=== PATIENT | female | born 1975 | race Caucasian/White ===

== ENCOUNTER 2022-04-06 16:55 | Emergency (ER) | payer OTHER ==
--- OUTSIDE RECORDS SUMMARY | 2022-04-06 16:58 | XMS REPORT | Continuity of Care Document ---
:1975 Author Organization [facility] t Address [address] [place] [address] Care Team Providers Name Role Phone PREZAS Primary Care Physician Unavailable RADIOLOGY Attending Clinician Unavailable Jana JIMENEZ Attending Clinician Unavailable Jana Galvan Attending Clinician CHIDI_Levi Attending Clinician Unavailable Chidi Attending Clinician [phone] CHIDI_S Admitting Clinician Unavailable Payers Payer Name Policy Type Policy Number Effective Date Expiration Date [facility] [id number] 2022 [place] 00[place]00[place] [id number] 2020 [place] 00:[place]00 [place] [facility] [id number] 2018 00:00:00 BCBS [facility] [id number] 2019 00:00:00 Problems Condition Condition Condition Status Onset Resolution Last Treating Co mments Source Name Details Category Date Date Treatment Clinician Date Obesity Obesity Disease Active Univers (BMI (BMI 6-10 ity of 30-39.9) 30-39.9) 00:00: [place] 00 Medical Branch Allergies, Adverse Reactions, Alerts Allergy Allergy Status Severity Reaction(s) Onset Inactive Treating Comm ents Source Name Type Date Date Clinician SULFA Drug Active Rash Univers (SULFONA Class 8-02 ity of MIDE 00:00: [place] ANTIBIOT 00 Medical ICS) Branch VANCOMYC DRUG Active Hives Univers IN INGREDI 06-01 ity of 00:00: [place] 00 Medical Branch Sulfa Propensi Active Rash 2015- Univers (Sulfona ty to 06-01 ity of mide adverse 00:00: [place] Antibiot reaction 00 Medica l ics) s Branch Vancomyc Propensi Active Hives Univer s in ty to 06-01 ity of adverse 00:00: [place] reaction 00 Medical s Branch Social History Social Habit Start Date Stop Date Quantity Comments Source Exposure to Not sure [facility] SARS-CoV-2 (event) Medica l Branch Tobacco use and 2018-06-15 2018-06-15 Never used [facility] exposure 00:00:00 00:00:00 Medical Branch Sex [birth year] [facility] 00:00:00 00:00:00 Medical Branch Smoking Status Start Date Stop Date Source Never smoker [facility] Medications Ordered Filled Start Stop Current Ordering Indication Dosage Frequency Signature Comments Components Source Medication Medication Date Date Medication? Clinician (SIG) Name Name bromphenira 2021- Yes [id number] 5mL Take 5 mL Univers mine-pseudo 4-15 04-21 by mouth 4 i ty of ephedrine-D 00:00: 04:59 (four) Lui as M 2-30-10 00 :00 times Medical mg/5 mL daily as Branch syrup needed for Congestion /Allergies for up to 5 days. codeine-gua 2020-10 Yes 5mL Take 5 mL U nivers ifenesin 2-15 by mouth. ity of 10-100 mg/5 00:00: [place] mL oral 00 Medical solution Branch albuterol 2020-10- No 2{puff} Inhale 2 Univers 90 2-15 12-16 Puffs. ity of mcg/actuati 00:00: 05:59 [place] on inhaler 00 :00 Medical Branch buPROPion 2020-10- No 150mg Take 150 Un georges XL 150 mg 1-04 11-05 mg by ity of 24 hr 00:00: 04:59 mouth. [place] tablet 00 :00 Medical Branch SERTraline 2020-10- No 100mg Take 100 U nivers 100 mg -04 11-05 mg by ity of tablet 00:00: 04:59 mouth. [place] 00 :00 [facility] phentermine 1-0 Yes 15mg Take 15 mg Univers 15 mg 4-19 by mouth. ity of capsule 00:00: [place] 00 [facility] FLUoxetine 2018-0 Yes 20mg Take 20 mg U nivers (PROZAC) 20 8-16 by mouth ity of mg capsule 21:42: daily. [address] Immunizations Ordered Filled Immunization Date Status Comments Maynor hansen Immunization Name Name SARS-COV-2 COVID-19 2021-02-07 Completed Unive rsity of PFIZER VACCINE 00:00:00 [facility] SARS-COV-2 COVID-19 2021-01-17 Completed Unive rsity of PFIZER VACCINE 00:00:00 [facility] Vital Signs Vital Name Observation Time Observation Value Comments Source Systolic blood 2022-02-12 19:55:00 120 mm[Hg] Univer sity of pressure [facility] Diastolic blood 2022-02-12 19:55:00 79 mm[Hg] Unive rsity of pressure [facility] Heart rate 2022-02-12 19:55:00 81 /min [facility] Body temperature 2022-02-12 19:55:00 36.72 Kelsi [facility] Respiratory rate 2022-02-12 19:55:00 14 /min [facility] Body height 2022-02-12 19:55:00 170.2 cm [facility] Body weight 2022-02-12 19:55:00 98.975 kg [facility] BMI 2022-02-12 19:55:00 34.17 kg/m2 [facility] Oxygen saturation in 2022-02-12 19:55:00 96 /min [facility] Arterial blood by [facility] Pulse oximetry Tok Procedures Procedure Date / Time Performed Performing Clinician Maynor hansen POCT MOLECULAR FLU 2022-02-12 19:58:00 Maria Fernanda Jimenez [facility] Encounters Start End Encounter Admission Attending Care Care Encounter Source Date/Time Date/Time Type Type Clinicians Facility Department ID 2022-04-09 2022-04-09 Outpatient R RADIOLOGY [facility] [id number] [facility] 00:00:00 00:00:00 [id number] [facility] 2022-02-12 2022-02-12 [facility] [id number] Univers 15:00:00 15:23:23 MARIA FERNANDA pablo o f [facility] 2022-02-12 2022-02-12 [facility] [id number] Univers 15:00:00 15:23:23 Care Maria Fernanda [facility] [id number] [facility] [id number] Lui as SUMMER?BLEA [id number] Me [address] MEDICAL OFFICE BUILDING 2022-02-12 2022-02-12 Outpatient R [facility] [id number] Univers 15:00:00 15:00:00 [id number] [facility] 2021-08-01 2021-08-01 Outpatient [facility] [id number] [place] 07:22:00 07:22:00 [facility] 2021-06-27 2021-06-27 Outpatient [facility] [id number] [place] 02:28:00 02:28:00 0828 [facility] 2021-05-23 2021-05-23 Outpatient [facility] [id number] [place] 02:31:00 02:31:00 0724 [facility] 2021-04-27 2021-04-27 Outpatient [facility] [id number] [place] 03:41:00 03:41:00 0628 [facility] 2021-04-27 2021-04-27 Outpatient Hernandez, [facility] [id number] 00:00:00 00:00:00 Jyoti [id number] 2021-02-07 2021-02-07 Outpatient [facility] [id number] Univers 16:35:00 16:35:00 ity [facility] 2021-01-17 2021-01-17 Outpatient [facility] [id number] Univers 16:40:00 16:40:00 ity [facility] 2007-03-23 2007-03-23 Outpatient [facility] [id number] Univers 00:00:00 00:00:00 [id number] ity [facility] 2006-12-26 2006-12-26 Outpatient [facility] [id number] Univers 00:00:00 08:51:37 4 ity [facility] 2006-12-22 2006-12-22 Outpatient [facility] [id number] Univers 00:00:00 00:00:00 [id number] ity [facility] 2006-12-13 2006-12-13 Outpatient [facility] [id number] Univers 00:00:00 00:00:00 [id number] ity [facility] 2006-09-20 2006-09-20 Outpatient [facility] [id number] Univers 00:00:00 14:26:48 6 ity [facility] 2006-06-27 2006-06-27 Outpatient [facility] [id number] Univers 00:00:00 14:12:51 7 ity [facility] 2006-04-27 2006-04-27 Outpatient [facility] [id number] Univers 00:00:00 00:00:00 [id number] ity [facility] 2006-04-04 2006-04-04 Outpatient [facility] [id number] Univers 00:00:00 [facility]47[facility] 2006-01-10 Outpatient [facility] [id number] Univers 00:00:00 13:48:19 3 [facility] Results Test Description Test Time Test Comments Results Result Comments Source POCT MOLECULAR FLU 2022-02-12 20:09:57 Test Item Value Reference Range Interpretation Comme nts POCT Molecular FluA (test code = 10281-0) Negative Negative POCT Molecular FluB (test code = 05978-6) Negative Negative Lab Interpretation (test code = 14792-4) Normal [facility]
[2022-04-06] MEDS ORDERED: ONDANSETRON 4 MG/2 ML VIAL ONE ×3 (18:01→19:53)
[2022-04-06] MEDS ORDERED: NA CHLORIDE 0.9% 1,000 ML ONE ×2 (18:01→19:53)
[2022-04-06] MEDS ORDERED: MORPHINE 4 MG/ML SYR ONE (18:01)
[2022-04-06] MEDS ORDERED: FENTANYL CITR 100 MCG/2 ML ONE (18:06)
[2022-04-06 18:08] LABS: Absolute Lymphocytes (CBC) 2.3 K/uL (0.7-4.9); Hematocrit 46.4 % (36.0-45.0); Lymphocytes % 31.1 % (15.3-44.8); MPV 7.9 fL (7.6-11.3); RBC Red Blood Cell Count 5.14 M/uL (3.86-4.86)
--- NOTE | 2022-04-06 18:30 | RAD REPORT ---
EXAM DESCRIPTION: US - Abdomen Exam Limited - 04/06/2022 6:21 pm CLINICAL HISTORY: epigastric/RUQ pain COMPARISON: ABDOMINAL EXAM LIMITED dated 04/18/2015 FINDINGS: The gallbladder demonstrates no gallstones. No pericholecystic fluid or gallbladder wall t hickening. The common bile duct is normal measuring 3 mm. The liver demonstrates no findings of intrahepatic biliary dilatation. IMPRESSION: Unremarkable examination.
[2022-04-06 19:14] LABS: Albumin 2.6 g/dL (3.4-5.0); Bilirubin Total 0.3 mg/dL (0.2-1.0); Potassium 3.6 mmol/L (3.5-5.1); Protein, Total 6.5 g/dL (6.4-8.2)
[2022-04-06 20:00] LABS: Urine Blood Negative (Negative); Urine Glucose Negative (Negative); Urine Protein Negative (Negative); Urine Specific Gravity 1.025 (1.005-1.030); Urine pH 5.5 (5.0-7.0)
--- NOTE | 2022-04-06 20:19 | RAD REPORT ---
EXAM DESCRIPTION: CTAbdomen Pelvis W Contrast - 04/06/2022 8:01 pm CLINICAL HISTORY: Abdominal pain. Epigastric pain COMPARISON: Abdomen Pelvis W Contrast dated 04/16/2017 TECHNIQUE: Biphasic CT imaging of the abdomen and pelvis was performed with 100 ml non-ionic IV cont rast. All CT scans are performed using dose optimization technique as appropriate and may include automated exposure control or mA/KV adjustment according to patient size. FINDINGS: The lung bases are clear. The liver, spleen, pancreas, adrenal glands and kidneys are within normal limits. No bowel obstruction, free air, free fluid or abscess. Mild sigmoid diverticulosis. The appendix is n ormal. No evidence of significant lymphadenopathy. Mild lower lumbar degenerative changes. 4 cm right ovarian cyst. IMPRESSION: No acute intra-abdominal or pelvic finding.
[2022-04-06 20:59] LABS: Urine Bacteria <20 /HPF (<20); Urine RBC <5 /HPF (NONE SEEN)
--- NOTE | 2022-04-06 21:08 | ER ---
Nurse's Notes [facility] Name: Nadia Blackwell Age: 46 yrs Sex: Female : 1975 Arrival Date: 04/06/2022 Time: 16:57 Bed 16 Private MD: Diagnosis: Nausea with vomiting, unspecified;Diarrhea, unspecified;Hyperglycemia, unspecified Presentation: 04/06 17:01 Chief complaint: Patient states: I have felt sick since Tuesday afternoon. I have had jb4 diarrhea since Tuesday and nausea. Today I started dry heaving. I have had this burning stomach pain that now radiates to the right. Coronavirus screen: At this time, the client does not indicate any symptoms associated with coronavirus-19. Ebola Screen: No symptoms or risks identified at this time. Initial Sepsis Screen: Does the patient meet any 2 criteria? No. Patient's initial sepsis screen is negative. Does the patient have a suspected source of infection? Yes: Acute abdominal pain. Risk Assessment: Do you want to hurt yourself or someone else? Patient reports no desire to harm self or others. Onset of symptoms was April 03, 2022. Transition of care: patient was not received from another setting of care. 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 - Social history:: Smoking status: Patient denies any tobacco usage or history of. Screenin:35 Abuse screen: Denies threats or abuse. jh6 17:35 Nutritional screening: No deficits noted. Tuberculosis screening: No symptoms or risk jh6 factors identified. Fall Risk Assessment: 17:35 General: Appears in no apparent distress. uncomfortable, Behavior is calm, cooperative. jh6 Pain: Complains of pain in abdomen Pain currently is 6 out of 10 on a pain scale. Quality of pain is described as burning, crampy, Pain began 2-3 days ago. Is intermittent, Aggravated by increased activity, repositioning, Noted to be guarding. 17:35 GI: Bowel sounds present X 4 quads. Abd is soft X 4 quads Abdomen is tender to jh6 palpation in right upper quadrant and left upper quadrant Guarding noted in umbilical area, right upper quadrant and left upper quadrant Reports upper abdominal pain, nausea, vomiting. 19:45 Reassessment:. General: Appears in no apparent distress. Behavior is appropriate for lp1 age. Pain: Complains of pain in epigastric area Pain currently is 5 out of 10 on a pain scale. Neuro: Level of Consciousness is awake, alert, obeys commands. Cardiovascular: Patient's skin is warm and dry. Respiratory: Respiratory effort is even, unlabored. GI: Abdomen is round Abdomen is tender to palpation in epigastric area Reports nausea. : No signs and/or symptoms were reported regarding the genitourinary system. Derm: Skin is pink, warm \T\ dry. Musculoskeletal: No deficits noted. 19:50 Reassessment: Patient to CT via wheelchair. lp1 20:06 Reassessment: Patient returned from CT. lp1 21:19 Reassessment: Patient appears in no apparent distress at this time. Patient is alert, lp1 oriented x 3, equal unlabored respirations, skin warm/dry/pink. Patient states feeling better. Patient states symptoms have improved. 21:40 Reassessment: Patient is alert, oriented x 3, equal unlabored respirations, skin bb warm/dry/pink. pt verbalized understanding of and agrees to plan of care discharge instructions given pt ambulated with steady gait to exit. Vital Signs: 17:01 BP 118 / 90; Pulse 86; Resp 16; Temp 97.7(TE); Pulse Ox 100% on R/A; Weight 97.98 kg; jb4 Height 5 ft. 8 in. (172.72 cm) (R); Pain 10/10; 20:14 BP 128 / 79; Pulse 79; Resp 18; Pulse Ox 100% on R/A; lp1 21:41 BP 114 / 73; Pulse 73; Resp 16 S; Pulse Ox 98% on R/A; bb 17:01 Body Mass Index 32.84 (97.98 kg, 172.72 cm) jb4 ED Course: 16:57 Patient arrived in ED. rg4 17:03 Triage completed. jb4 17:03 Arm band placed on right wrist. jb4 17:05 Edmar Forrest PA is PHCP. cp 17:05 Jimmy Yoder MD is Attending Physician. cp 17:35 Bed in low position. Call light in reach. Side rails up X 1. Adult w/ patient. jh6 17:40 Daina Mejia, RN is Primary Nurse. jh6 17:59 Inserted saline lock: 20 gauge in left forearm, using aseptic technique. Blood ww collected. 18:23 US Abdomen Limited In Process Unspecified. EDMS 18:45 No provider procedures requiring assistance completed. jh6 20:03 CT Abd/Pelvis - IV Contrast Only In Process Unspecified. EDMS 21:41 IV discontinued, intact, bleeding controlled, No redness/swelling at site. Pressure bb dressing applied. Administered Medications: 17:58 Drug: NS 0.9% 1000 ml Route: IV; Rate: 1 bolus; Site: left antecubital; jh6 21:42 Follow up: IV Status: Completed infusion; IV Intake: 1000ml bb 17:58 Drug: Zofran (Ondansetron) 4 mg Route: IVP; Site: left antecubital; jh6 18:00 Drug: fentaNYL (PF) 25 mcg Route: IVP; Site: left antecubital; jh6 18:41 Not Given (Patient Refused): morphine 4 mg IVP once over 4 mins jh6 19:50 Drug: Zofran (Ondansetron) 4 mg Route: IVP; Site: left forearm; lp1 21:18 Follow up: Response: No adverse reaction; Marked relief of symptoms lp1 20:14 Drug: NS 0.9% 1000 ml Route: IV; Rate: 1 bolus; Site: left forearm; lp1 21:19 Follow up: IV Status: Completed infusion; IV Intake: 1000ml lp1 21:43 Not Given (Hemodynamic Parameters): Insulin Regular Human 5 units IVP once bb Medication: 20:08 VIS not applicable for this client. lp1 Intake: 21:19 IV: 1000ml; Total: 1000ml. lp1 21:42 IV: 1000ml; Total: 2000ml. bb Outcome: 21:07 Discharge ordered by . cp 21:42 Discharged to home ambulatory. bb 21:42 Condition: stable 21:42 Discharge instructions given to patient, Instructed on discharge instructions, follow up and referral plans. Demonstrated understanding of instructions, follow-up care. 21:43 Patient left the ED. bb Signatures: Dispatcher [employer] Maris Mederos RN RN bb Arabella Anderson RN RN lp1 Edmar Forrest PA PA cp Garcia, Rubi rg4 Tru Bryant RN RN jb4 Daina Mejia RN RN jh6 Mary Gramajo RN RN ww Corrections: (The following items were deleted from the chart) 18:41 17:58 morphine 4 mg IVP in left antecubital over 4 mins [facility]
--- NOTE | 2022-04-06 21:08 | EDPHYS ---
Physician Documentation [facility] Name: Nadia Blackwell Age: 46 yrs Sex: Female : 1975 Arrival Date: 04/06/2022 Time: 16:57 Bed 16 Private MD: ED Physician Jimmy Yoder HPI: 04/06 17:50 This 46 yrs old Female presents to ER via Ambulatory with complaints of Abdominal Pain, cp Nausea. 17:50 The patient presents with abdominal pain in the epigastric area. Onset: The cp symptoms/episode began/occurred 3 day(s) ago. The symptoms radiate to back. Associated signs and symptoms: Pertinent positives: nausea and vomiting, anorexia, diarrhea, Pertinent negatives: chest pain, constipation, fever, vomiting blood. 17:50 The symptoms are described as waxing/waning. cp 17:50 Modifying factors: the symptoms are aggravated by food. 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 - Social history:: Smoking status: Patient denies any tobacco usage or history of. ROS: 17:55 Constitutional: Positive for poor PO intake, Negative for body aches, chills, fever. cp 17:55 Eyes: Negative for injury, pain, redness, and discharge. cp 17:55 ENT: Negative for drainage from ear(s), ear pain, sore throat, difficulty swallowing, difficulty handling secretions. 17:55 Cardiovascular: Negative for chest pain, edema, palpitations. 17:55 Respiratory: Negative for cough, shortness of breath, wheezing. 17:55 Abdomen/GI: Positive for abdominal pain, nausea, vomiting, and diarrhea, of the epigastric area, Negative for hematemesis, black/tarry stool, rectal bleeding. 17:55 Back: Positive for radiated pain, Negative for injury or acute deformity, decreased range of motion. 17:55 Skin: Negative for cellulitis, rash. 17:55 Neuro: Negative for altered mental status, headache, weakness. 17:55 All other systems are negative. Exam: 18:00 Constitutional: The patient appears in no acute distress, alert, awake, cp non-diaphoretic, non-toxic, well developed, well nourished, uncomfortable. 18:00 Head/Face: Normocephalic, atraumatic. cp 18:00 Eyes: Periorbital structures: appear normal, Conjunctiva: normal, no exudate, no injection, Sclera: no appreciated abnormality, Lids and lashes: appear normal, bilaterally. 18:00 ENT: External ear(s): are unremarkable, Nose: is normal, Mouth: Lips: moist, Oral mucosa: pink and intact, moist, Posterior pharynx: Airway: no evidence of obstruction, patent. 18:00 Chest/axilla: Inspection: normal. 18:00 Cardiovascular: Rate: normal, Rhythm: regular. 18:00 Respiratory: the patient does not display signs of respiratory distress, Respirations: normal, no use of accessory muscles, no retractions, labored breathing, is not present, Breath sounds: are clear throughout, no decreased breath sounds, no stridor, no wheezing. 18:00 Abdomen/GI: Inspection: abdomen appears normal, Bowel sounds: active, all quadrants, Palpation: soft, in all quadrants, severe abdominal tenderness, in the epigastric area and right upper quadrant, rebound tenderness, is not appreciated, voluntary guarding, is elicited in the epigastric area and right upper quadrant. 18:00 Back: pain, that is moderate, of the mid back area, ROM is normal. 18:00 Neuro: Orientation: to person, place \T\ time. Mentation: is normal, Motor: moves all fours, strength is normal, Sensation: is normal. Vital Signs: 17:01 BP 118 / 90; Pulse 86; Resp 16; Temp 97.7(TE); Pulse Ox 100% on R/A; Weight 97.98 kg; jb4 Height 5 ft. 8 in. (172.72 cm) (R); Pain 10/10; 20:14 BP 128 / 79; Pulse 79; Resp 18; Pulse Ox 100% on R/A; lp1 21:41 BP 114 / 73; Pulse 73; Resp 16 S; Pulse Ox 98% on R/A; bb 17:01 Body Mass Index 32.84 (97.98 kg, 172.72 cm) jb4 MDM: 17:30 Patient medically screened. 21:08 Data reviewed: vital signs, nurses notes, lab test result(s), EKG, radiologic studies, cp CT scan, ultrasound. 21:08 Counseling: I had a detailed discussion with the patient and/or guardian regarding: the cp historical points, exam findings, and any diagnostic results supporting the discharge/admit diagnosis, lab results, radiology results, the need for outpatient follow up, a family practitioner, to return to the emergency department if symptoms worsen or persist or if there are any questions or concerns that arise at home. Response to treatment: the patient's symptoms have markedly improved after treatment, and as a result, I will discharge patient. Special discussion: Based on the patient's Hx, exam, and Dx evaluation, there is no indication for emergent surgery or inpatient Tx. It is understood by the patient/guardian that if the Sx's persist or worsen they need to return immediately for re-evaluation. ED course: VSS. Pain and nausea markedly improved. Will discharge to home for continued monitoring. 04/06 17:46 Order name: CBC with Diff; Complete Time: 18:52 04/06 18:52 Interpretation: Normal except: RBC 5.14; HGB 15.6; HCT 46.4. 04/06 17:46 Order name: CMP; Complete Time: 19:36 04/06 19:36 Interpretation: Normal except: NA 131; CO2 18; ANION GAP 15.6; GLUC 466; GFR 67; ALK cp 135; ALB 2.6; GLOB 3.9; A/G 0.7. 04/06 17:46 Order name: Lipase; Complete Time: 19:36 04/06 19:38 Interpretation: Reviewed. 04/06 17:46 Order name: Urine Microscopic Only; Complete Time: 21:08 04/06 19:44 Order name: Hemoglobin A1c 04/06 19:44 Order name: LAB Add On 04/06 17:46 Order name: CT Abd/Pelvis - IV Contrast Only; Complete Time: 20:26 04/06 20:27 Interpretation: Report reviewed. 04/06 17:47 Order name: US Abdomen Limited; Complete Time: 18:52 04/06 18:53 Interpretation: Report reviewed. 04/06 19:48 Order name: Hemoglobin A1c; Complete Time: 20:26 EDMS 04/06 20:26 Interpretation: HA1C 5.1. cp 04/06 20:00 Order name: Urine Dipstick-Ancillary; Complete Time: 20:26 EDMS 04/06 21:17 Order name: Glucose, Ancillary Testing EDMS 04/06 17:46 Order name: IV Saline Lock; Complete Time: 18:40 cp 04/06 17:46 Order name: Labs collected and sent; Complete Time: 18:40 cp 04/06 17:46 Order name: Urine Dipstick-Ancillary (obtain specimen); Complete Time: 20:06 cp 04/06 17:47 Order name: NPO; Complete Time: 18:40 cp 04/06 20:28 Order name: PO challenge; Complete Time: 21:18 cp 04/06 20:57 Order name: Accucheck Blood Glucose; Complete Time: 21:07 cp Administered Medications: 17:58 Drug: NS 0.9% 1000 ml Route: IV; Rate: 1 bolus; Site: left antecubital; jh6 21:42 Follow up: IV Status: Completed infusion; IV Intake: 1000ml bb 17:58 Drug: Zofran (Ondansetron) 4 mg Route: IVP; Site: left antecubital; jh6 18:00 Drug: fentaNYL (PF) 25 mcg Route: IVP; Site: left antecubital; jh6 18:41 Not Given (Patient Refused): morphine 4 mg IVP once over 4 mins jh6 19:50 Drug: Zofran (Ondansetron) 4 mg Route: IVP; Site: left forearm; lp1 21:18 Follow up: Response: No adverse reaction; Marked relief of symptoms lp1 20:14 Drug: NS 0.9% 1000 ml Route: IV; Rate: 1 bolus; Site: left forearm; lp1 21:19 Follow up: IV Status: Completed infusion; IV Intake: 1000ml lp1 21:43 Not Given (Hemodynamic Parameters): Insulin Regular Human 5 units IVP once bb Disposition Summary: 04/06/22 21:07 Discharge Ordered Location: Home cp Problem: new cp Symptoms: have improved cp Condition: Stable cp Diagnosis - Nausea with vomiting, unspecified cp - Diarrhea, unspecified cp - Hyperglycemia, unspecified cp Followup: cp - With: Private Physician - When: 1 - 2 days - Reason: Recheck today's complaints Discharge Instructions: - Discharge Summary Sheet cp - Food Choices to Help Relieve Diarrhea, Adult cp - Diarrhea, Adult cp - Hyperglycemia cp - Nausea and Vomiting, Adult cp - Blood Glucose Monitoring, Adult cp Forms: - Medication Reconciliation Form cp - Thank You Letter cp - Antibiotic Education cp - Prescription Opioid Use cp Addendum: 04/08/2022 04:11 Co-signature as Attending Physician, Jimmy Yoder MD. r n Signatures: Dispatcher [employer] EDAR Jimmy Yoder MD MD rn Pena, Laura RN RN lp1 Edamr Forrest PA PA cp Tru Bryant RN RN jb4 Daina Mejia RN RN jh6 Maris Montana RN bb Corrections: (The following items were deleted from the chart) 04/06 20:06 17:46 Urine Test ordered. cp lp1
[2022-04-06 22:24] VITALS: TEMP 97.7
[2022-04-06 22:34] VITALS: BP 114/73; O2SAT 98
== END 2022-04-06 21:43 | disposition home or self-care (01) ==
LOC: ER 16:55
DX: R11.2 Nausea with vomiting, unspecified (principal); R19.7 Diarrhea, unspecified; R73.9 Hyperglycemia, unspecified; Z88.2 Allergy status to sulfonamides; Z88.3 Allergy status to other anti-infective agents
CPT/HCPCS: 85025; 36415; 82947; 83036; 83690; 80053; 74177; 76705; Q9967; J3010; J7030 ×2; J2405 ×3; 81003; 81015

== ENCOUNTER 2024-06-16 11:36 | Emergency (ER) | payer OTHER ==
[2024-06-16] MEDS ORDERED: ONDANSETRON 4 MG/2 ML VIAL ONE (12:11)
[2024-06-16] MEDS ORDERED: HYDROMORPHONE HCL 1 MG/ML INJ ONE (12:13)
[2024-06-16] MEDS ORDERED: FAMOTIDINE 20 MG/2 ML VIAL IV ONE (12:13)
[2024-06-16] MEDS ORDERED: NA CHLORIDE 0.9% 1,000 ML ONE (12:13)
[2024-06-16 12:15] LABS: Absolute Basophils 0.1 K/uL (0-0.5); Absolute Eosinophils 0.1 K/uL (0-0.5); Absolute Lymphocytes (CBC) 1.6 K/uL (0.7-4.9); Absolute Monocytes 0.5 K/uL (0.1-1.3); Absolute Neutrophil 3.8 K/uL (1.8-8.0); Eosinophils % 2.4 % (0-4.4); Hematocrit 46.6 % (36.0-45.0); Hemoglobin 15.7 g/dL (12.0-15.0); MCH 31.5 pg (27.0-35.0); MCHC 33.7 g/dL (32.0-36.0); MCV 93.4 fL (80-100); MPV 7.7 fL (7.6-11.3); Monocytes % 7.8 % (3.3-12.3); Neutrophils % 62.8 % (41.7-73.7); Platelets 276 thou/uL (152-406); Red Cell Distribution Width 12.2 % (12.1-15.2)
[2024-06-16 12:32] LABS: Albumin/Globulin Ratio 1.1 (1.1-1.8); Bilirubin Total 0.8 mg/dL (0.2-1.0); Globulin 3.5 g/dL (2.3-3.5); Protein, Total 7.5 g/dL (6.4-8.2)
--- NOTE | 2024-06-16 12:59 | RAD REPORT ---
EXAM DESCRIPTION: CTAbdomen Pelvis W Contrast - 06/16/2024 12:47 pm CLINICAL HISTORY: ABD PAIN COMPARISON: Abdomen Pelvis W Contrast dated 04/06/2022; Abdomen Pelvis W Contrast dated 04/16/2017 TECHNIQUE: CT of the abdomen and pelvis was performed with IV contrast. All CT scans are performed using dose optimization technique as appropriate and may include automated exposure control or mA/KV adjustment according to patient size. FINDINGS: Lower chest: No acute abnormality. Mild circumferential thickened distal esophagus . Liver: No acute abnormality or suspicious lesions. Biliary: No biliary ductal dilatation. Stomach: No significant focal abnormality. Duodenum: No significant focal abnormality. Pancreas: No significant abnormality. Spleen: No significant abnormality. Adrenal: No suspicious lesions. Kidney/ureter: No hydronephrosis. No renal calculi. Bilateral pelviectasis which is chronic. Retroperitoneum: No retroperitoneal adenopathy. Vascular: No aneurysm. Bowel: No significant focal abnormality. Normal appendix . Diverticulosis without diverticulitis. Peritoneum: No ascites or free air. Bladder: Grossly unremarkable. Reproductive: Right adnexal cyst measuring 4.8 cm. This is almost certainly benign and no follow-up i s required. Hysterectomy. Bones: No acute fracture. Grade 1 anterolisthesis of L4 on L5. Other: n/a IMPRESSION: No acute intra-abdominal or pelvic finding. No appendicitis.
--- NOTE | 2024-06-16 13:19 | RAD REPORT ---
EXAM DESCRIPTION: US - Abdomen Exam Limited - 06/16/2024 12:57 pm CLINICAL HISTORY: ABD PAIN COMPARISON: Abdomen Pelvis W Contrast dated 04/06/2022 FINDINGS: The gallbladder demonstrates no gallstones. No pericholecystic fluid or gallbladder wall t hickening. The common bile duct is normal measuring 3 mm. The liver demonstrates no findings of intrahepatic biliary dilatation. IMPRESSION: Unremarkable examination.
[2024-06-16 13:40] LABS: Specific Gravity 1.016 (1.005-1.030); Sqamous Epithelial None Seen /HPF (None Seen); Urine Bacteria None Seen /HPF (<20); Urine Bilirubin NEGATIVE (Negative); Urine Blood Negative (Negative); Urine Clarity Clear (Clear); Urine Color Colorless (Yellow); Urine Culture Reflex Order NOT NEEDED; Urine Glucose NEGATIVE (Negative); Urine Ketones NEGATIVE (Negative); Urine Microscopic Reflex YN ORDER UMIC; Urine Nitrite NEGATIVE (Negative); Urine Protein NEGATIVE (Negative); Urine RBC <5 /HPF (None Seen); Urine Urobilinogen Normal (Normal); Urine WBC <5 /HPF (<5); Urine pH 5.5 (5.0-7.0)
--- NOTE | 2024-06-16 14:17 | ER ---
Nurse's Notes [facility] Name: Nadia Blackwell Age: 48 yrs Sex: Female : 1975 Arrival Date: 06/16/2024 Time: 11:36 Bed 6 Private MD: Diagnosis: Abdominal tenderness;Vomiting Presentation: 06/16 11:57 Chief complaint: Patient states: stomach pains since Tuesday , [facility] and iw had outpatient US and blood, does not have results yet, c/o mid abd pain into shoulder blades and now the pain is only in her abd. Coronavirus screen: At this time, the client does not indicate any symptoms associated with coronavirus-19. Ebola Screen: No symptoms or risks identified at this time. Initial Sepsis Screen: Does the patient meet any 2 criteria? No. Patient's initial sepsis screen is negative. Does the patient have a suspected source of infection? No. Patient's initial sepsis screen is negative. Risk Assessment: Do you want to hurt yourself or someone else? Patient reports no desire to harm self or others. Onset of symptoms was June 14, 2024. 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 - Infectious Disease History:: Denies. - Social history:: Smoking status: Patient denies any tobacco usage or history of. - Family history:: not pertinent. Screenin:23 [facility] ED Fall Risk Assessment (Adult) History of falling in the last 3 months, hb including since admission No falls in past 3 months (0 pts) Confusion or Disorientation No (0 pts) Intoxicated or Sedated No (0 pts) Impaired Gait No (0 pts) Mobility Assist Device Used No (0 pt) Altered Elimination No (0 pt) Score/Fall Risk Level 3 or more points = High Risk Oriented to surroundings, Maintained a safe environment, Educated pt \T\ family on fall prevention, incl call for assistance when getting out of bed, Assessed \T\ reinforced patient's understanding of fall precautions, Provided non-skid footwear, Hourly rounding (assess needs \T\ fall precautionary measures) done. Abuse screen: Denies threats or abuse. Denies injuries from another. Nutritional screening: No deficits noted. Tuberculosis screening: No symptoms or risk factors identified. Assessment: 12:22 General: Appears in no apparent distress. Behavior is calm, cooperative. Pain: Pain hb currently is 7 out of 10 on a pain scale. Neuro: Level of Consciousness is awake, alert, obeys commands, Oriented to person, place, time, situation. Cardiovascular: Patient's skin is warm and dry. Respiratory: Respiratory effort is even, unlabored, Respiratory pattern is regular, symmetrical. GI: Reports upper abdominal pain, nausea. 14:14 Reassessment: Patient appears in no apparent distress at this time. Patient and/or iw family updated on plan of care and expected duration. Pain level reassessed. Patient is alert, oriented x 3, equal unlabored respirations, skin warm/dry/pink. Vital Signs: 11:57 BP 129 / 73; Pulse 70; Resp 16; Temp 98.1; Pulse Ox 100% on R/A; Weight 80.74 kg; iw Height 5 ft. 6 in. ; Pain 8/10; 13:26 BP 120 / 77; Pulse 65; Resp 18; Pulse Ox 96% on R/A; ld1 11:57 Body Mass Index 28.73 (80.74 kg, 167.64 cm) iw 11:57 Pain Scale: Adult ED Course: 11:39 Patient arrived in ED. mg5 11:58 Edmar Hanna MD is Attending Physician. kassidy 11:59 Triage completed. iw 12:00 Arm band placed on. iw 12:06 Inserted saline lock: 20 gauge in right antecubital area, using aseptic technique. hb Blood collected. Flushed with 10 mL NS. 12:06 Initial lab(s) drawn, by me, sent to lab. hb 12:21 CMP Sent. hb 12:21 Lipase Sent. hb 12:23 Patient has correct armband on for positive identification. Bed in low position. Call hb light in reach. Provided Education on: medications, tests, result times, use of call light, fall precautions after narcotic administration. Pulse ox on. NIBP on. 12:26 Jodi Fuentes, RN is Primary Nurse. hb 12:49 CT Abd/Pelvis - IV Contrast Only In Process Unspecified. EDMS 12:59 US Abdomen Limited In Process Unspecified. EDMS 13:24 Urinalysis w/ reflexes Sent. iw 13:24 Urine collected: clean catch specimen, clear. iw 14:16 Margarito Rondon MD is Referral Physician. kassidy 14:24 EKG done, by ED staff, reviewed by Edmar Hanna MD. em1 14:35 No provider procedures requiring assistance completed. IV discontinued, intact, iw bleeding controlled, No redness/swelling at site. Administered Medications: 12:10 CANCELLED (Duplicate Order): morphineor iv 4 mg IVP once over 4 mins kassidy 12:21 Drug: NS 0.9% IV 1000 ml IV at 1 bolus Per protocol; 1000 mL bolus Route: IV; Rate: 1 hb bolus; Site: right antecubital; 12:21 Drug: Famotidine IVP 20 mg IVP once; dilute with 10 mL 0.9% NaCl; give over 2 minutes hb Route: IVP; Site: right antecubital; 12:21 Drug: Ondansetron IVP 4 mg IVP once; over 2 minutes Route: IVP; Site: right antecubital;hb 12:21 Drug: HYDROmorphone IVP 1 mg IVP once Route: IVP; Site: right antecubital; hb Medication: 12:24 VIS not applicable for this client. hb Outcome: 14:16 Discharge ordered by . kassidy 14:35 Discharged to home ambulatory, iw 14:35 Condition: stable 14:35 Discharge instructions given to patient, Instructed on discharge instructions, follow up and referral plans. medication usage, Demonstrated understanding of instructions, follow-up care, medications, Prescriptions given X 3, 14:35 Patient left the ED. iw Signatures: Dispatcher [employer] Edmar Davis MD MD cha Williams, Irene, RN RN iw Gabe Estevez em1 Jodi Fuentes RN RN Anastasia Griffiths RN RN ld1 Shu Cardona mg5
--- NOTE | 2024-06-16 14:17 | EDPHYS ---
Physician Documentation [facility] Name: Nadia Blackwell Age: 48 yrs Sex: Female : 1975 Arrival Date: 06/16/2024 Time: 11:36 Bed 6 Private MD: ED Physician Edmar Hanna HPI: 06/16 14:11 This 48 yrs old Female presents to ER via Ambulatory with complaints of kassidy Abdominal Pain. 14:11 The patient presents with abdominal pain in the epigastric area, in the lower abdomen, kassidy in the periumbilical area. Onset: The symptoms/episode began/occurred 3 day(s) ago. The symptoms do not radiate. Associated signs and symptoms: Pertinent positives: nausea and vomiting, nausea. The symptoms are described as crampy. Modifying factors: The symptoms are alleviated by nothing, the symptoms are aggravated by nothing. Severity of pain: At its worst the pain was moderate in the emergency department the pain is unchanged. [employer]: 12:00 LMP N/A - Hysterectomy, Not iw Historical: - Allergies: 11:59 Vancomycin (Anaphylaxis); iw 11:59 Sulfa (Sulfonamide Antibiotics); rash; iw - Home Meds: 11:59 Zepbound 5 mg/0.5 mL subcutaneous solution daily [Active]; buspirone 5 mg Oral tablet iw daily [Active]; Wellbutrin Oral 300 mg daily [Active]; - PMHx: 11:59 Depression; iw - PSHx: 11:59 ; hysterectomy; iw 12:00 knee; wrist; iw - Immunization history:: Adult Immunizations up to date. - Infectious Disease History:: Denies. - Social history:: Smoking status: Patient denies any tobacco usage or history of. - Family history:: not pertinent. ROS: 14:11 Constitutional: Negative for fever, chills, and weight loss, Eyes: Negative for injury, kassidy pain, redness, and discharge, ENT: Negative for injury, pain, and discharge, Neck: Negative for injury, pain, and swelling, Cardiovascular: Negative for chest pain, palpitations, and edema, Respiratory: Negative for shortness of breath, cough, wheezing, and pleuritic chest pain, Back: Negative for injury and pain, : Negative for injury, bleeding, discharge, and swelling, MS/Extremity: Negative for injury and deformity, Skin: Negative for injury, rash, and discoloration, Neuro: Negative for headache, weakness, numbness, tingling, and seizure, Psych: Negative for depression, anxiety, suicide ideation, homicidal ideation, and hallucinations, Allergy/Immunology: Negative for hives, rash, and allergies, 14:11 Abdomen/GI: Positive for abdominal pain, nausea, vomiting, abdominal distension, Exam: 14:11 Constitutional: This is a well developed, well nourished patient who is awake, alert, kassidy and in no acute distress. Head/Face: Normocephalic, atraumatic. Eyes: Pupils equal round and reactive to light, extra-ocular motions intact. Lids and lashes normal. Conjunctiva and sclera are non-icteric and not injected. Cornea within normal limits. Periorbital areas with no swelling, redness, or edema. ENT: Nares patent. No nasal discharge, no septal abnormalities noted. Tympanic membranes are normal and external auditory canals are clear. Oropharynx with no redness, swelling, or masses, exudates, or evidence of obstruction, uvula midline. Mucous membranes moist. Neck: Trachea midline, no thyromegaly or masses palpated, and no cervical lymphadenopathy. Supple, full range of motion without nuchal rigidity, or vertebral point tenderness. No Meningismus. Chest/axilla: Normal chest wall appearance and motion. Nontender with no deformity. No lesions are appreciated. Cardiovascular: Regular rate and rhythm with a normal S1 and S2. No gallops, murmurs, or rubs. Normal PMI, no JVD. No pulse deficits. Respiratory: Lungs have equal breath sounds bilaterally, clear to auscultation and percussion. No rales, rhonchi or wheezes noted. No increased work of breathing, no retractions or nasal flaring. Back: No spinal tenderness. No costovertebral tenderness. Full range of motion. Skin: Warm, dry with normal turgor. Normal color with no rashes, no lesions, and no evidence of cellulitis. MS/ Extremity: Pulses equal, no cyanosis. Neurovascular intact. Full, normal range of motion. Neuro: Awake and alert, GCS 15, oriented to person, place, time, and situation. Cranial nerves II-XII grossly intact. Motor strength 5/5 in all extremities. Sensory grossly intact. Cerebellar exam normal. Normal gait. Psych: Awake, alert, with orientation to person, place and time. Behavior, mood, and affect are within normal limits. 14:11 Abdomen/GI: Inspection: abdomen appears normal, Bowel sounds: normal, Palpation: mild abdominal tenderness, in the epigastric area, suprapubic area, right lower quadrant and left lower quadrant, Liver: no appreciated palpable abnormalities, Hernia: not appreciated, 14:11 Musculoskeletal/extremity: DVT Exam: No signs of deep vein thrombosis. no pain, no swelling, no tenderness, negative Homans' sign noted on exam, no appreciated bluish discoloration, no erythema, no increased warmth, 14:25 ECG was reviewed by the Attending Physician. [facility] Vital Signs: 11:57 BP 129 / 73; Pulse 70; Resp 16; Temp 98.1; Pulse Ox 100% on R/A; Weight 80.74 kg; iw Height 5 ft. 6 in. ; Pain 8/10; 13:26 BP 120 / 77; Pulse 65; Resp 18; Pulse Ox 96% on R/A; ld1 11:57 Body Mass Index 28.73 (80.74 kg, 167.64 cm) iw 11:57 Pain Scale: Adult iw MDM: 11:58 Patient medically screened. [facility] 14:13 Differential diagnosis: cholecystitis, Cholelithiasis, diverticulitis, Dysmenorrhea, kassidy gastritis, gastroesophageal reflux disease, GI Bleed, Herpes Zoster, sympomatic leaking abdominal aortic aneurysm, Mesenteric ischemia or infarction, non-specific abd pain, pancreatitis, Peptic Ulcer Disease, Peritonitis, Pyelonephritis, Ureterolithiasis, urinary tract infection. Data reviewed: vital signs, nurses notes, lab test result(s), radiologic studies, CT scan, ultrasound. Consideration of Admission/Observation Escalation of care including admission/observation considered. I considered the following discharge prescriptions or medication management in the emergency department Medications were administered in the Emergency Department. See MAR. Independent interpretation of the following test(s) in the Emergency Department CT Scan: My interpretation is ct ab/pelvis. Test considered but Not performed: MRI: no mrcp. Historians other than the Patient: patient well informed. Care significantly affected by the following chronic conditions: Obesity. 06/16 11:59 Order name: CBC with Diff; Complete Time: 14: [facility] 06/16 11:59 Order name: CMP; Complete Time: 14: [facility] 06/16 11:59 Order name: Lipase; Complete Time: 14:06 [facility] 06/16 11:59 Order name: Urinalysis w/ reflexes; Complete Time: 14:06 [facility] 06/16 11:59 Order name: CT Abd/Pelvis - IV Contrast Only; Complete Time: 14:06 [facility] 06/16 12:10 Order name: US Abdomen Limited; Complete Time: 14:06 [facility] 06/16 11:59 Order name: IV Saline Lock; Complete Time: 12:21 [facility] 06/16 11:59 Order name: Labs collected and sent; Complete Time: 12:21 [facility] EC:25 Rate is 62 beats/min. Rhythm is regular. QRS [place] is Normal. OH interval is prolonged kassidy at 222 msec. QT interval is normal. No Q waves. T waves are Normal. No ST changes noted. Clinical impression: NSR w/ Non-specific ST/T Changes, 1st degree heart block, and No evidence of ischemia. Interpreted by me. Reviewed by me. Administered Medications: 12:10 CANCELLED (Duplicate Order): morphineor iv 4 mg IVP once over 4 mins kassidy 12:21 Drug: NS 0.9% IV 1000 ml IV at 1 bolus Per protocol; 1000 mL bolus Route: IV; Rate: 1 hb bolus; Site: right antecubital; 12:21 Drug: Famotidine IVP 20 mg IVP once; dilute with 10 mL 0.9% NaCl; give over 2 minutes hb Route: IVP; Site: right antecubital; 12:21 Drug: Ondansetron IVP 4 mg IVP once; over 2 minutes Route: IVP; Site: right antecubital;hb 12:21 Drug: HYDROmorphone IVP 1 mg IVP once Route: IVP; Site: right antecubital; hb Disposition Summary: 06/16/24 14:16 Discharge Ordered Notes: Location: Home kassidy Problem: new kassidy Symptoms: have improved kassidy Condition: Stable kassidy Diagnosis - Abdominal tenderness kassidy - Vomiting kassidy Followup: kassidy - With: Private Physician - When: 2 - 3 days - Reason: Recheck today's complaints, Continuance of care, Re-evaluation by your physician Followup: kassidy - With: Margarito Rondon MD - When: 2 - 3 days - Reason: Recheck today's complaints, Continuance of care, Re-evaluation by your physician Discharge Instructions: - Discharge Summary Sheet kassidy - Abdominal Pain, Adult kassidy - Abdominal Pain, Adult, [id number] kassidy - Abdominal Pain, Pediatric kassidy - Vomiting, Adult [facility] Forms: - Medication Reconciliation Form [facility] - Antibiotic Education kassidy - Prescription Opioid Use kassidy - Patient Portal Instructions [facility] - Leadership Thank You Letter [facility] Prescriptions: - ondansetron 4 mg Oral Tablet,disintegrating - take 1 tablet ORAL route 4 times per day as needed for nausea and vomiting; 20 kassidy tablet; Refills: 0, Product Selection Permitted - Pepcid 20 mg Oral Tablet - take 1 tablet ORAL route every 12 hours for 10 days; 20 tablet; Refills: 0, [facility] Product Selection Permitted - dicyclomine 20 mg Oral tablet - take 1 tablet ORAL route 4 times per day; 28 tablet; Refills: 0, Product [facility] Selection Permitted Signatures: Dispatcher [employer] EDMS Edmar Hanna MD MD cha Williams, Irene, LINCOLN RN Jodi Fuentes RN RN Corrections: (The following items were deleted from the chart) 12:10 11:59 morphine IVP or IV 4 mg IVP once over 4 mins ordered. kassidy [facility] 13:25 11:59 Test, Urine+[id number].LAB.BRZ ordered. EDAR EDMS
[2024-06-16 15:06] VITALS: BP 129/73; TEMP 98.1; O2SAT 100
== END 2024-06-16 14:35 | disposition home or self-care (01) ==
LOC: ER 11:36
DX: R10.816 Epigastric abdominal tenderness (principal); R11.10 Vomiting, unspecified
CPT/HCPCS: 85025; 81001; 36415; 83690; 80053; 74177; 76705; 96375; 96374; 99284; Q9967; J1170; J2405; J7030

== ENCOUNTER 2024-07-18 09:34 | Day surgery (SDC) | payer OTHER ==
[2024-07-18 10:05] LABS: Absolute Basophils 0.1 K/uL (0-0.5); Absolute Eosinophils 0.1 K/uL (0-0.5); Absolute Lymphocytes (CBC) 1.4 K/uL (0.7-4.9); Absolute Monocytes 0.4 K/uL (0.1-1.3); Absolute Neutrophil 3.6 K/uL (1.8-8.0); Eosinophils % 1.5 % (0-4.4); Hematocrit 41.9 % (36.0-45.0); Hemoglobin 14.1 g/dL (12.0-15.0); Lymphocytes % 25.1 % (15.3-44.8); MCH 31.4 pg (27.0-35.0); MCHC 33.7 g/dL (32.0-36.0); MCV 93.2 fL (80-100); MPV 7.9 fL (7.6-11.3); Monocytes % 7.4 % (3.3-12.3); Platelets 256 thou/uL (152-406); RBC Red Blood Cell Count 4.49 M/uL (3.86-4.86); Red Cell Distribution Width 12.1 % (12.1-15.2)
[2024-07-18] MEDS ORDERED: CEFOXITIN SODIUM 1 GM/VIAL ONE (10:20)
[2024-07-18] MEDS ORDERED: Ringers Lactate 1,000 ML IV ONE (10:20)
[2024-07-18 10:26] LABS: ALT/SGPT 29 U/L (13-56); AST/SGOT 18 U/L (15-37); Albumin 3.7 g/dL (3.4-5.0); Albumin/Globulin Ratio 1.1 (1.1-1.8); Alkaline Phosphatase 79 U/L (45-117); Anion Gap 8.8 mEq/L (5.0-15.0); BUN Blood Urea Nitrogen 12 mg/dL (7-18); Bicarbonate 27 mEq/L (21-32); Bilirubin Total 0.7 mg/dL (0.2-1.0); Globulin 3.4 g/dL (2.3-3.5); Glomerular Filtration Rate 55 ml/min (=/>90); Glucose Level 98 mg/dL (74-106); Lipase 37 U/L (13-75); Potassium 3.8 mEq/L (3.5-5.1); Protein, Total 7.1 g/dL (6.4-8.2); Sodium Level 140 mEq/L (136-145)
[2024-07-18 10:27] LABS: Bilirubin Direct < 0.2 mg/dL (0-0.2); Bilirubin Indirect, Calculated 0.5 mg/dL (0.2-0.8)
[2024-07-18] MEDS ORDERED: FENTANYL CITR 100 MCG/2 ML ONE (10:33)
[2024-07-18] MEDS ORDERED: MIDAZOLAM HCL 2 MG/2 ML INJ ONE (10:33)
[2024-07-18] MEDS ORDERED: LIDOCAINE 1% MPF 5 ML VIAL ONE (10:33)
[2024-07-18] MEDS ORDERED: propofoL 200 MG/20 ML VIAL IV ONE (10:33)
[2024-07-18] MEDS ORDERED: ONDANSETRON 4 MG/2 ML VIAL ONE (10:33)
[2024-07-18] MEDS ORDERED: KETOROLAC 30 MG/ML INJ ONE (10:33)
[2024-07-18] MEDS ORDERED: GLYCOPYRROLATE 0.2 MG/ML SYR ONE ×2 (10:33→11:56)
[2024-07-18] MEDS ORDERED: ROCURONIUM 50 MG/5 ML VIAL IV ONE (10:33)
[2024-07-18] MEDS ORDERED: NEOSTIGMINE 1 MG/ML -10 ML VIAL ONE (11:56)
--- NOTE | 2024-07-18 11:59 | P.BOP ---
Preoperative diagnosis: RUQ abd pain, biliary dyskinesia Postoperative diagnosis: same Primary procedure: Laparoscopic cholecystectomy Estimated blood loss: <10cc Specimen: gb Findings: as above Anesthesia: General Complications: None Transferred to: Recovery Room Condition: Good
--- NOTE | 2024-07-18 12:33 | RAD REPORT ---
EXAMINATION: TWO VIEW CHEST XR CLINICAL INDICATION: Female, 49 years old. [facility]. Hypertension SDS 2 TECHNIQUE: 2 view radiographs of the chest were performed. COMPARISON: 01/19/2016 FINDINGS: The lungs are well inflated and clear. No pneumothorax or sizable effusion. The heart is normal in si ze. Mediastinal contours are unremarkable. IMPRESSION: No acute or significant abnormalities.
[2024-07-18 12:49] VITALS: O2SAT 99
[2024-07-18] MEDS: CODEINE 30MG/APAP 300MG TAB ONE (13:38)
[2024-07-18 13:46] VITALS: BP 128/75; TEMP 97.1
--- NOTE | 2024-07-19 15:27 | OP ---
Date of Procedure: 07/18/2024 Surgeon: Kapil Estevez MD Preoperative Diagnoses: Right upper quadrant abdominal pain, biliary dyskinesia. Postoperative Diagnoses: Right upper quadrant abdominal pain, biliary dyskinesia. Procedure: Laparoscopic cholecystectomy. Estimated Blood Loss: Less than 10 cc. Specimen: Gallbladder. Finding: As above. Anesthesia: General plus local. Indications: This is the case of a female, who came to us with above diagnoses. Fully explained the benefits, alternatives, and risks of laparoscopic possible open cholecystectomy, which include, but not limited to, infection, bleeding, damage to adjacent structures, anesthesia complication, choledoc holithiasis, bile leak, pancreatitis, NC, and even . She also understands this may not relieve any symptoms. She might need more than one surgical intervention. She understood, signed a consent. Description Of Procedure: The patient was brought to the operating room, placed in supine position. Anesthesia was done without complication. Abdominal area was prepped and draped in the usual steril e fashion. Marcaine 0.5% was injected for local anesthetic followed by sharp incision of skin in the periumbilical region. Incision was carried down to fascia, which was opened under direct vision. P eritoneum was encountered, opened under direct vision. Vicryl #1 placed inside of the fascia. Hasso n trocar was carefully introduced. Pneumoperitoneum was obtained. I placed 3 more trocars, 5 mm eac h one of them, 1 in the epigastric area, 2 in the right upper quadrant using same technique which con sisted of local anesthetic and sharp incision of the skin, and introduction of the trocars under dire ct vision. This allowed me to put a grasper in the fundus of the gallbladder, another grasper in the infundibulum, retracting the gallbladder in the inferolateral fashion exposing the triangle of Calot , and obtaining critical view. Cystic duct and cystic artery were clearly isolated circumferentially and a connection between those and the gallbladder were clearly identified. I proceeded to ligate t hose by using at least 3 clips proximal, 1 clip distal, ligation in the middle. Same was done with t he cystic artery. No bile leak. No bleeding. The gallbladder was removed from the liver using Bovi e cauterizer and removed from the abdominal cavity using EndoCatch through the umbilical incision. A judah was inspected once again. No bile leak. No bleeding. At that moment, I proceeded to remove the trocars under direct vision, deflated pneumoperitoneum, closed the fascia with #1 Vicryl, irrigated subcutaneous tissue, closed that with 3-0 chromic and the skin approximated. Sponge counts and instr ument counts correct. Patient tolerated the procedure well. Patient sent to recovery in stable cond ition. ASSCHA/JHONNY Voice ID: [id number] Report ID: [id number]
--- NOTE | 2024-07-20 09:11 | DS ---
Date of Discharge: 07/18/2024 Diagnoses: Right upper quadrant abdominal pain. Biliary dyskinesia. Procedure: Laparoscopic cholecystectomy. Condition: Stable. Disposition: Home. Activity: As tolerated. No heavy lifting. Discharge Instructions: Follow up in my office in 1 week. Call for appointment at [phone]. Keep a judah dry for 48 hours, then may shower. Keep Steri-Strips intact. SASCHA/JHONNY Voice ID: [id number] Report ID: [id number]
== END 2024-07-18 14:36 | disposition home or self-care (01) ==
LOC: OR 09:34
PROVIDERS: ATTEND Surgery
PROC: 0FT44ZZ Resection of Gallbladder, Percutaneous Endoscopic Approach (ICD-10-PCS; principal; 2024-07-18 11:45)
DX: K82.4 Cholesterolosis of gallbladder (principal); K82.8 Other specified diseases of gallbladder
CPT/HCPCS: 36415; 71046; 80048; 80076; 83690; 85025; 88304; J0694; J2001; J2250; J2405; J2704; J2710; J3010; J7120